=== PATIENT | male | born 1980 | race Caucasian/White ===

== ENCOUNTER 2020-03-22 14:51 | Emergency (ER) | payer BC, SELFPAY ==
[2020-03-22 15:00] VITALS: BP 153/105; PULSE 85; RESP 20; TEMP 37.2; O2SAT 99
--- NOTE | 2020-03-22 15:17 | ED.EYEPROB ---
HPI - Eye Problem General Chief complaint: Eye Problems Stated complaint: left eye red/itchy Source: patient Mode of arrival: ambulatory Limitations: no limitations History of Present Illness HPI Narrative: Patient is a 40-year-old male who presents complaining of left eye pain. He reports pain started at approximately 0400, unknown injury. Reports photophobia and tearing. Reports foreign body sensation. Patient reports speaking to PCP office online and was referred to urgent care. He denies taking anything for pain, he denies other complaints. He does report and family have all recently been tested for Covid, negative or are currently awaiting results. Patient denies direct Covid exposure, but reports had positive exposure with coworker last week. chief complaint: eye pain and eye redness Related Data Home Medications Medication Instructions Recorded Confirmed losartan 100 mg PO DAILY 03/22/20 03/22/20 Allergies Allergy/AdvReac Type Severity Reaction Status Date / Time codeine Allergy Hives Verified 03/22/20 15:14 Review of Systems Review of Systems: Narrative: CONSTITUTIONAL: Denies fever, chills, or sweats. EYES: Reports redness, tearing and foreign body sensation ENT: Denies rhinorrhea, congestion, sore throat, or otalgia. CARDIOVASCULAR: Denies chest pain, palpitations, or edema. RESPIRATORY: Denies cough or dyspnea. GASTROINTESTINAL: Denies abdominal pain, nausea, vomiting, or diarrhea. GENITOURINARY: Denies dysuria or hematuria. SKIN: Denies rash or itching. MUSCULOSKELETAL: Denies back pain, joint pain, or myalgia. NEUROLOGIC: Denies headache, numbness, dizziness, or weakness. PSYCHIATRIC: Denies anxiety or depression. PMFSH Past Medical History Medical History (Updated 03/22/20 @ 15:57 by DUSTIN Blevins) HTN (hypertension) No significant family history Seasonal allergies Surgical History Surgical History (Updated 03/22/20 @ 15:50 by DUSTIN Blevins) No significant past surgical history Social History Social History (Updated 03/22/20 @ 15:51 by DUSTIN Blevins) Smoking status: Current every day smoker Alcohol intake: current Alcohol use details: occasional Substance use: never Living arrangements: with family Occupation/Education: occupation Exam Narrative: Exam Narrative: GENERAL: Well-appearing, well-nourished, and in no acute distress. HEAD: Normocephalic, atraumatic. EYES: Left eye conjunctivae injected, tearing noted, redness ENT: Mucous membranes pink and moist. CHEST: No respiratory distress. EXTREMITIES: Normal range of motion. SKIN: Warm, dry, no rash. NEURO: No focal deficits. Alert and oriented x3. Gait steady. PSYCH: Normal affect. No signs of depression or anxiety. Course Vital Signs Vital signs: Vital Signs Temperature 37.2 C 03/22/20 15:00 Pulse Rate 85 03/22/20 15:00 Respiratory Rate 20 03/22/20 15:00 Blood Pressure 153/105 H 03/22/20 15:00 Pulse Oximetry 99 03/22/20 15:00 Temperature 37.2 C 03/22/20 15:00 Pulse Rate 85 03/22/20 15:00 Respiratory Rate 20 03/22/20 15:00 Blood Pressure 153/105 H 03/22/20 15:00 Pulse Oximetry 99 03/22/20 15:00 Reviewed. Patient has been instructed to follow-up with his PCP regarding his blood pressure. Procedures Other Procedure Procedure 1: Other Procedure: Left eye was anesthetized with 1 drop of tetracaine and anesthesia was achieved. The eye was flushed with eyewash. Lid was inverted and examined. Moistened Q-tip was used to sweep underneath the upper eyelid with no foreign bodies resulting. Cornea was dyed with fluorescein and 1 abrasion or ulcerations noted. Patient tolerated procedure well. MDM - Eye Problem MDM Narrative Medical decision making narrative: Patient has left corneal abrasion. Patient to be treated with ophthalmology appointment. Discussed pain management and follow-up with ophthalmology if needed. Patient
== END 2020-03-22 16:06 | disposition home or self-care (01) ==
PROVIDERS: Emergency Provider Nurse Practitioner; PCP General Practice
DX: S05.02XA Injury of conjunctiva and corneal abrasion without foreign body, left eye, initial encounter (principal); X58.XXXA Exposure to other specified factors, initial encounter; F17.200 Nicotine dependence, unspecified, uncomplicated; I10 Essential (primary) hypertension
CPT/HCPCS: 99213; A9270; G0463